=== PATIENT | female | born 1970 | race African-American/Black ===

== ENCOUNTER → 2022-04-11 | Emergency (ER) | payer OTHER ==
[2022-04-11 20:34] LABS: BUN/CREATININE RATIO 21 (0-10)
[2022-04-11 20:37] LABS: HEMOGLOBIN 14.4 gm/dl (12.3-15.3); RED BLOOD COUNT 4.63 M/UL (4.00-5.10); WHITE BLOOD COUNT 7.4 K/UL (4.5-11.0)
== END | disposition home or self-care (01) ==
LOC: ER1 16:23
PROVIDERS: Physician Assistant
DX: E11.40 Type 2 diabetes mellitus with diabetic neuropathy, unspecified (principal); I10 Essential (primary) hypertension
CPT/HCPCS: 80048; 85025; 99283

== ENCOUNTER 2022-05-03 19:04 | Emergency (ER) | payer OTHER ==
[2022-05-03 21:51] LABS: HEMOGLOBIN 14.3 gm/dl (12.3-15.3); RED BLOOD COUNT 4.66 M/UL (4.00-5.10); WHITE BLOOD COUNT 8.1 K/UL (4.5-11.0)
[2022-05-03 22:11] LABS: BUN/CREATININE RATIO 14 (0-10)
== END 2022-05-04 03:08 | disposition home or self-care (01) ==
LOC: ER1 19:04
PROVIDERS: Physician Assistant
DX: E11.9 Type 2 diabetes mellitus without complications (principal); R59.0 Localized enlarged lymph nodes; I10 Essential (primary) hypertension; Z79.4 Long term (current) use of insulin; Z88.8 Allergy status to other drugs, medicaments and biological substances; Z20.822 Contact with and (suspected) exposure to COVID-19
CPT/HCPCS: 80053; 81001; 82009; 82962; 85025; 87081; 87880; 99283; U0002